=== PATIENT | male | born 1990 | race Caucasian/White ===

== ENCOUNTER 2021-05-09 08:24 | Emergency (ER) | payer OTHER, MEDICAID, SELFPAY ==
[2021-05-09 08:33] VITALS: BP 117/73
[2021-05-09 08:34] VITALS: PULSE 128; O2SAT 98
--- NOTE | 2021-05-09 08:41 | ED.GENADULT ---
HPI - General Adult General Stated complaint: INFECTION ON SKIN Time Seen by Provider: 05/09/21 08:33 Source: patient Mode of arrival: Ambulatory Limitations: no limitations History of Present Illness HPI narrative: 30-year-old male who is here for evaluation of infections on the back of his right wrist, on the back of his right middle finger, on the top of his left knee and on the side of his right leg. He states they have been there for the past several days. Initially started with a wound on his right shoulder but that seems to have improved. He does admit to IV drug abuse however he states that he these are not the sites where he injects himself. Has been using topical antibiotic ointment and also soap and water. Was having discomfort around the area so came into the emergency department for evaluation. Related Data Previous Rx's Medication Instructions Recorded doxycycline hyclate 100 mg tablet 100 mg PO BID 7 Days #14 tab 05/09/21 Review of Systems Constitutional Constitutional: Denies fever(s) Musculoskeletal Musculoskeletal: Reports system reviewed and no additional complaints, except as documented Integumentary/Breasts Skin/Breast: Reports system reviewed and no additional complaints, except as documented Neurologic Neurologic: Reports system reviewed and no additional complaints, except as documented Hematologic/Lymphatic On Anticoagulants: No Patient History Medical History IV drug abuse Social History lives independently: Yes Smoking Status: Current every day smoker Exam HENPA Head: normal to inspection and normocephalic Resp Effort & Inspection: normal respiratory effort Cardio Rate: tachycardic Skin Other: Patient has for specific areas 1 on the dorsum of the right wrist, 1 on the dorsum of the right middle finger, anterior aspect of left knee and on the lateral aspect of the right lower extremity. They overall approximately 1 cm in diameter. Minimal surrounding erythema. There are pustules. Neuro General: patient alert, patient awake, patient oriented x3 and moves all extremities Extrem General: capillary refill normal Psych Appearance: grossly normal and disheveled Course Orders Ordered: Doxycycline Hyclate (Doxycycline Hyclate 100 Mg Tablet) 100 mg PO NOW ONE Stop: 05/09/21 08:43 Medical Decision Making MDM Narrative Medical decision making narrative: Patient was tachycardic and is did show hold but otherwise appears nontoxic. The 4 areas in question were unroofed with return of small amount of purulent material. There is minimal surrounding erythema. I have low suspicion for septic joint based on his physical exam today. He is tachycardic and I did consider sepsis however given the rest of his periods I do feel that sepsis is unlikely. He is afebrile. He does admit that he is nervous about being here in the ER. Will paced the patient on antibiotics. Was given 1st dose here in the ER. He was given care instructions and strict return precautions. He expressed understanding and agreement. Discharge Plan Departure Patient Disposition: Home Clinical Impression: Abscess Instructions: DI for Incision and Drainage of a Skin Abscess Activity Restrictions/Additional Instructions: You can shower like normal. You can use soap and water like normal. You can put topical antibiotic over the areas. Take the antibiotics as directed. Your 1st dose was given here in the ER so your next dose will be this evening. You can take Tylenol for any fevers. Return to the emergency department for any new or worsening symptoms. Prescriptions: New doxycycline hyclate 100 mg tablet 100 mg PO BID 7 Days Qty: 14 0RF
[2021-05-09 08:42] VITALS: BP 117/73; PULSE 116; RESP 18; TEMP 36.8; O2SAT 99; BMI 25.0
[2021-05-09] MEDS: DOXYCYCLINE HYCLATE 100 MG TABLET PO (08:53)
== END 2021-05-09 09:45 | disposition home or self-care (01) ==
PROVIDERS: Emergency Provider Emergency Medicine
DX: L02.91 Cutaneous abscess, unspecified (principal); F17.200 Nicotine dependence, unspecified, uncomplicated
CPT/HCPCS: 99283

== ENCOUNTER 2022-11-14 23:11 | Emergency (ER) | payer OTHER, MEDICAID, SELFPAY ==
[2022-11-14 23:17] VITALS: BP 122/68; PULSE 100; RESP 18; TEMP 36.6; O2SAT 99; BMI 25.0
== END 2022-11-15 01:18 | disposition left against medical advice (07) ==
PROVIDERS: Emergency Provider Emergency Medicine
DX: B99.9 Unspecified infectious disease (principal)
CPT/HCPCS: 99281